=== PATIENT | male | born 1975 | race Caucasian/White ===

== ENCOUNTER 2018-01-01 13:38 | Emergency (ER) | payer BC ==
[2018-01-01] MEDS ORDERED: HYDROCODONE/APAP 10/325 TAB ONE (16:27)
[2018-01-01] MEDS ORDERED: TETANUS & DIPHTHERIA TOX,ADULT 0.5 ML VIAL ONE (16:28)
[2018-01-01] MEDS ORDERED: LIDOCAINE 1% MPF 5 ML VIAL ONE (16:46)
--- NOTE | 2018-01-01 17:13 | EDPHYS ---
Physician Documentation [facility] Name: Tyree Harding Age: 42 yrs Sex: Male : 1975 Arrival Date: 01/01/2018 Time: 13:39 Bed 19 Private MD: ED Physician Wesly Noel HPI: 01/01 17:00 This 42 yrs old Male presents to ER via Ambulatory with complaints of Abscess.pm1 17:00 the patient presents with a swollen area of the right lower quadrant. Description: The pm1 affected area is small. Onset: The symptoms/episode began/occurred 1 week(s) ago. Possible cause(s): unknown. Associated signs and symptoms: Pertinent negatives: discharge, drainage, fever. Modifying factors: the symptoms are alleviated by nothing, the symptoms are aggravated by touching. Severity of symptoms: in the emergency department the symptoms are actually worse. The patient has not experienced similar symptoms in the past. The patient has not recently seen a physician. Historical: - Allergies: 13:44 No Known Allergies; la1 - Home Meds: 15:25 None [Active]; rb1 - PMHx: 13:44 None; la1 - PSHx: 15:25 None; rb1 - Immunization history:: Adult Immunizations up to date. - Social history:: Smoking status: Patient/guardian denies using tobacco. ROS: 17:00 Constitutional: Negative for fever, chills, and weight loss, Cardiovascular: Negative pm1 for chest pain, palpitations, and edema, Respiratory: Negative for shortness of breath, cough, wheezing, and pleuritic chest pain, Abdomen/GI: Negative for abdominal pain, nausea, vomiting, diarrhea, and constipation, Back: Negative for injury and pain, MS/Extremity: Negative for injury and deformity. 17:00 Neuro: Negative for headache, weakness, numbness, tingling, and seizure. 17:00 Skin: Positive for abscess, of the right lower quadrant, Negative for cellulitis. Exam: 17:00 Constitutional: This is a well developed, well nourished patient who is awake, alert, pm1 and in no acute distress. Head/Face: Normocephalic, atraumatic. Eyes: Pupils equal round and reactive to light, extra-ocular motions intact. Lids and lashes normal. Conjunctiva and sclera are non-icteric and not injected. Cornea within normal limits. Periorbital areas with no swelling, redness, or edema. ENT: Nares patent. No nasal discharge, no septal abnormalities noted. Tympanic membranes are normal and external auditory canals are clear. Oropharynx with no redness, swelling, or masses, exudates, or evidence of obstruction, uvula midline. Mucous membranes moist. Neck: Trachea midline, no thyromegaly or masses palpated, and no cervical lymphadenopathy. Supple, full range of motion without nuchal rigidity, or vertebral point tenderness. No Meningismus. Chest/axilla: Normal chest wall appearance and motion. Nontender with no deformity. No lesions are appreciated. Cardiovascular: Regular rate and rhythm with a normal S1 and S2. No gallops, murmurs, or rubs. Normal PMI, no JVD. No pulse deficits. Respiratory: Lungs have equal breath sounds bilaterally, clear to auscultation and percussion. No rales, rhonchi or wheezes noted. No increased work of breathing, no retractions or nasal flaring. Abdomen/GI: Soft, non-tender, with normal bowel sounds. No distension or tympany. No guarding or rebound. No evidence of tenderness throughout. Back: No spinal tenderness. No costovertebral tenderness. Full range of motion. 17:00 Skin: abscess, that is small, approximately 2 cm(s), of the right lower quadrant, with fluctuance, that is mild, no surrounding cellulitis. Vital Signs: 13:44 BP 134 / 100; Pulse 77; Resp 16; Temp 97.4; Pulse Ox 100% on R/A; Weight 99.79 kg; la1 Height 5 ft. 1 in. (154.94 cm); 15:30 BP 119 / 73; Pulse 66; Resp 17; Pulse Ox 97% on R/A; rb1 16:30 BP 133 / 91; Pulse 64; Resp 18; Pulse Ox 99% ; rb1 17:30 BP 122 / 82; Pulse 61; Resp 17; Pulse Ox 99% on R/A; Pain 2/10; rb1 18:00 BP 126 / 78; Pulse 63; Resp 18; Pulse Ox 100% on R/A; Pain 4/10; rb1 13:44 Body Mass Index 41.57 (99.79 kg, 154.94 cm) la1 Procedures: 17:10 I \T\ D: Incision and drainage was performed for an abscess of the right lower quadrant pm1 Prepped with Betadine, Anesthetized with 4 ml's 1% Lidocaine. Incised with #11 blade. Drained small amount serosanguinous fluid. Packed with iodoform gauze, Dressing: sterile 4x4 gauze, the patient tolerated the procedure well. MDM: 15:33 Patient medically screened. pm1 17:11 Data reviewed: vital signs. Data interpreted: Pulse oximetry: on room air is 99 %. pm1 Interpretation: normal. Counseling: I had a detailed discussion with the patient and/or guardian regarding: the historical points, exam findings, and any diagnostic results supporting the discharge/admit diagnosis, the need for outpatient follow up, to return to the emergency department if symptoms worsen or persist or if there are any questions or concerns that arise at home. 01/01 18:09 Order name: Wound Culture rb1 01/01 17:10 Order name: Incision \T\ Drainage Setup; Complete Time: 17:30 pm1 01/01 18:09 Order name: Wound dressing; Complete Time: 18:10 rb1 Administered Medications: 16:32 Drug: [place] 10 mg-325 mg 1 tabs Route: PO; rb1 17:00 Follow up: Response: No adverse reaction; Pain is decreased rb1 16:33 Drug: Tetanus-Diphtheria Toxoid Adult 0.5 ml {Cadastral Engineer: [employer]. Exp: rb1 04/13/2020. Lot #: [id number]. } Route: IM; Site: left deltoid; 16:50 Follow up: Response: No adverse reaction rb1 17:00 Drug: Lidocaine (1 %) 5 ml Volume: 5 ml; Route: Infiltration; rb1 Disposition: 01/02 09:14 Co-signature as Attending Physician, Wesly Noel MD I agree with the assessment and john plan of care. Disposition: 01/01/18 17:12 Discharged to Home. Impression: Cutaneous abscess of abdominal wall. - Condition is Stable. - Discharge Instructions: Abscess, Incision and Drainage. - Prescriptions for Keflex 500 mg Oral Capsule - take 1 capsule by ORAL route every 6 hours for 10 days; 40 capsule. Bactrim DS 800- 160 mg Oral Tablet - take 1 tablet by ORAL route every 12 hours for 10 days; 20 tablet. Tylenol- Codeine #3 300-30 mg Oral Tablet - take 2 tablets by ORAL route every 6 hours As needed; 20 tablet. - Medication Reconciliation Form, Thank You Letter, Antibiotic Education, Prescription Opioid Use form. - Follow up: Emergency Department; When: As needed; Reason: Worsening of condition. Follow up: León Villalta DO; When: 2 - 3 days; Reason: Wound Recheck, Recheck today's complaints, Continuance of care, Re-evaluation by your physician. - Problem is new. - Symptoms have improved. Signatures: Dispatcher [employer] EDNC Wesly Noel MD MD cha Attema, Lee RN RN la1 Marietta Bates RN RN rb1 Gordon Eastman, [employer] pm1
--- NOTE | 2018-01-01 17:13 | ER ---
Nurse's Notes [facility] Name: Tyree Harding Age: 42 yrs Sex: Male : 1975 Arrival Date: 01/01/2018 Time: 13:39 Bed 19 Private MD: Diagnosis: Cutaneous abscess of abdominal wall Presentation: 01/01 13:43 Presenting complaint: Patient states: I have this lump sticking out of my lower abd and la1 it has been sore for a week but since last night the pain has been much worse. Transition of care: patient was not received from another setting of care. Onset of symptoms was January 01, 2018. Initial Sepsis Screen: Does the patient meet any 2 criteria? No. Patient's initial sepsis screen is negative. Does the patient have a suspected source of infection? No. Patient's initial sepsis screen is negative. Care prior to arrival: None. 13:43 Method Of Arrival: Ambulatory la1 13:43 Acuity: ISSAC 3 la1 Historical: - Allergies: 13:44 No Known Allergies; la1 - Home Meds: 15:25 None [Active]; rb1 - PMHx: 13:44 None; la1 - PSHx: 15:25 None; rb1 - Immunization history:: Adult Immunizations up to date. - Social history:: Smoking status: Patient/guardian denies using tobacco. Screenin:25 Abuse screen: Denies threats or abuse. Nutritional screening: No deficits noted. rb1 Tuberculosis screening: No symptoms or risk factors identified. Fall Risk None identified. Assessment: 15:25 General: Appears uncomfortable, Behavior is calm, cooperative. General: Denies fever. rb1 Pain: Complains of pain in suprapubic Pain currently is 10 out of 10 on a pain scale. Pain began x 1 week. Neuro: Level of Consciousness is awake, alert, obeys commands, Oriented to person, place, time, situation. Cardiovascular: Capillary refill < 3 seconds is brisk in bilateral fingers. Respiratory: Airway is patent Respiratory effort is even, unlabored, Respiratory pattern is regular, symmetrical. GI: Bowel sounds present X 4 quads. Abd is soft Abdomen is tender to palpation in suprapubic area. : No signs and/or symptoms were reported regarding the genitourinary system. Derm: lump and redness noted to the suprapubic area. Musculoskeletal: Range of motion: intact in all extremities. 16:25 Reassessment: Patient appears in no apparent distress at this time. No changes from rb1 previously documented assessment. 17:00 Reassessment: Assisted provider with I \T\ D, pt. tolerated well. rb1 17:25 Reassessment: Patient appears in no apparent distress at this time. Patient and/or rb1 family updated on plan of care and expected duration. Pain level reassessed. Patient is alert, oriented x 3, equal unlabored respirations, skin warm/dry/pink. 18:00 Reassessment: Patient appears in no apparent distress at this time. Patient and/or rb1 family updated on plan of care and expected duration. Pain level reassessed. Patient is alert, oriented x 3, equal unlabored respirations, skin warm/dry/pink. Patient states symptoms have improved. Vital Signs: 13:44 BP 134 / 100; Pulse 77; Resp 16; Temp 97.4; Pulse Ox 100% on R/A; Weight 99.79 kg; la1 Height 5 ft. 1 in. (154.94 cm); 15:30 BP 119 / 73; Pulse 66; Resp 17; Pulse Ox 97% on R/A; rb1 16:30 BP 133 / 91; Pulse 64; Resp 18; Pulse Ox 99% ; rb1 17:30 BP 122 / 82; Pulse 61; Resp 17; Pulse Ox 99% on R/A; Pain 2/10; rb1 18:00 BP 126 / 78; Pulse 63; Resp 18; Pulse Ox 100% on R/A; Pain 4/10; rb1 13:44 Body Mass Index 41.57 (99.79 kg, 154.94 cm) la1 ED Course: 13:39 Patient arrived in ED. as 13:44 Triage completed. la1 13:44 Arm band placed on left wrist. la1 15:25 Marietta Bates, RN is Primary Nurse. rb1 15:25 Patient has correct armband on for positive identification. Bed in low position. Call rb1 light in reach. Side rails up X 1. Pulse ox on. NIBP on. 15:33 Gordon Eastman NP is PHCP. pm1 15:33 Wesly Noel MD is Attending Physician. pm1 17:11 León Villalta DO is Referral Physician. pm1 18:13 Wound Culture Sent. rb1 18:14 Patient did not have IV access during this emergency room visit. rb1 18:14 Assist provider with I \T\ D: of an abscess on right suprapubic area Set up I\T\D tray. rb 1 Performed by Gordon Eastman VENEER TAPING MACHINE OFFBEARER Culture sent to lab. Wound packed. iodoform gauze, Dressing with 4X4s, tegaderm Patient tolerated well. Administered Medications: 16:32 Drug: [place] 10 mg-325 mg 1 tabs Route: PO; rb1 17:00 Follow up: Response: No adverse reaction; Pain is decreased rb1 16:33 Drug: Tetanus-Diphtheria Toxoid Adult 0.5 ml {Collection Supervisor: [employer]. Exp: rb1 04/13/2020. Lot #: [id number]. } Route: IM; Site: left deltoid; 16:50 Follow up: Response: No adverse reaction rb1 17:00 Drug: Lidocaine (1 %) 5 ml Volume: 5 ml; Route: Infiltration; rb1 Outcome: 17:12 Discharge ordered by MD. pm1 18:14 Discharged to home ambulatory, with family. rb1 18:14 Condition: stable 18:14 Discharge instructions given to patient, Instructed on discharge instructions, follow up and referral plans. medication usage, Demonstrated understanding of instructions, follow-up care, medications, Prescriptions given X 3. 18:16 Patient left the ED. rb1 Signatures: Betty Frazier Lee, RN RN la1 Marietta Bates, RN RN rb1 Gordon Eastman, VENEER TAPING MACHINE OFFBEARER VENEER T[employer]ING MACHINE OFFBEARER pm1 Corrections: (The following items were deleted from the chart) 18:14 18:13 Assist provider with I \T\ D: of an abscess on right suprapubic area rb1 rb1 20:03 17:00 Assist provider with I \T\ D: of an abscess on right suprapubic area rb1 rb1
== END 2018-01-01 18:16 | disposition home or self-care (01) ==
LOC: ER 13:38
PROC: 0J980ZZ Drainage of Abdomen Subcutaneous Tissue and Fascia, Open Approach (ICD-10-PCS; principal; 2018-01-01)
DX: L02.211 Cutaneous abscess of abdominal wall (principal)
CPT/HCPCS: 87070; 87205; 90714; 99284